=== PATIENT | female | born 1945 | race Caucasian/White ===

== ENCOUNTER 2017-12-21 21:54 | Observation (INO) ==
[2017-12-21 22:23] LABS: Bilirubin,Urine Negative (Negative); Blood,Urine Negative (Negative); Clarity,Urine Clear (Clear); Color,Urine Yellow (Yellow); Glucose,Urine (UA) Normal (Normal); Ketones,Urine Negative (Negative); Leukocyte Esterase,Urine Negative (Negative); Nitrite,Urine Negative (Negative); Protein,Urine Trace mg/dL (Neg-Trace); Urobilinogen,Urine Normal (Normal)
[2017-12-21 22:26] LABS: Bacteria,Urine None Seen per hpf (None-Few); Hyaline Casts,Urine None Seen per lpf (None-Few); Squamous Epithelial Cell,Urine Many per lpf (None-Few); WBC,Urine 0-3 per hpf (0-3)
[2017-12-21 22:29] LABS: Basophils % 0.3 %; Eosinophils # 0.2 K/mcL (0.0-0.6); Eosinophils % 1.6 %; Hematocrit 46.9 % (35.3-44.9); Hemoglobin 14.9 g/dL (11.5-15.4); Immature Granulocytes % 0.6 % (0-4); Lymphocytes # 1.9 K/mcL (0.6-4.6); Lymphocytes % 17.7 %; Mean Corpuscular HGB Conc 31.8 g/dL (31.6-35.5); Mean Corpuscular Hemoglobin 28.4 pg (28.0-33.3); Mean Corpuscular Volume 89.3 fL (83.0-100.0); Mean Platelet Volume 10.5 fL (9.4-12.4); Monocytes # 0.7 K/mcL (0.0-1.3); Monocytes % 6.5 %; Neutrophils # 7.7 K/mcL (1.6-8.9); Platelet Count 295 K/mcL (140-400); Red Blood Count 5.25 M/mcL (3.82-4.97); Red Cell Distribution Width 15.4 % (11.5-14.5); Segmented Neutrophils % 73.3 %
[2017-12-21] MEDS ORDERED: *HR* FentaNYL (PF) 100 MCG/2 ML VIAL IVP ONE (22:30)
[2017-12-21] MEDS ORDERED: Ondansetron 4 MG/2 ML VIAL IVP ONE (22:30)
--- NOTE | 2017-12-21 22:31 | Emergency Department Note ---
Disposition Clinical Impression: Bowel obstruction Qualifiers: Intestinal obstruction type: unspecified Intestinal obstruction extent: complete Qualified Code(s): K56.601 - Complete intestinal obstruction, unspecified as to cause Disposition: Admitted As Inpatient Condition: Fair Referrals: Sawyer Ramos MD [Primary Care Provider] - Forms: ED Satisfaction Letter, Work/School Release Time of Disposition: 00:27 Abdominal Pain HPI - General Chief Complaint: ED Abdominal Pain Stated Complaint: abdominal pain Time Seen by Provider: 12/21/17 21:59 Source: patient Mode of arrival: ambulatory Limitations: no limitations Nursing Notes Reviewed: Yes Vital Signs Reviewed: Yes - History of Present Illness HPI Narrative: 72-year-old female history of hypertension diabetes presents an emergency department with abdominal pain. Describes the pain as a twisting cramping pain mostly in the mid-and right upper quadrant. Reports of some nausea and burping. No vomiting. It came on quite suddenly after her dinner which composed of a hamburger with [place] cheese and onions. Pain comes and goes. Currently pain free. The pain improves sitting up forward and worse when she lays back. No prior history of this before. She has had multiple abdominal surgeries including cholecystectomy in total hysterectomy as well as gastric bypass and hernia repair. Denies any urinary symptoms. She had a bowel movement today. She is also complains of some back discomfort in the bilateral flank region. Believes she has kidney stones without prior history. States her last normal bowel movement was 2 days ago. Denies any fever cough. Denies any chest pain or shortness of breath. Denies any G.I. bleed symptoms. Pain Scale: 8 - Related Data Home Medications Medication Instructions Recorded Confirmed Escitalopram [Lexapro] 20 mg PO HS 11/17/15 09/09/17 Levothyroxine [Synthroid] 50 mcg PO HS 11/17/15 09/09/17 Lisinopril [Zestril] 40 mg PO HS 11/17/15 09/09/17 Metoprolol XL (24 HR) Succ [Toprol 25 mg PO HS 11/17/15 09/09/17 Xl] Pravastatin Sodium [Pravachol] 40 mg PO HS 11/17/15 09/09/17 Fluticasone Propionate Nasal 50 mcg NS DAILY 03/27/16 09/09/17 [Flonase] Amlodipine Besylate 5 mg PO DAILY 06/26/17 09/09/17 Aspirin [Lo-Dose Aspirin EC] 81 mg PO DAILY 09/09/17 09/09/17 Metformin HCl [Glucophage Xr] 750 mg PO DAILY 09/09/17 09/09/17 Previous Rx's Medication Instructions Recorded Handicap Placard 1 each .ROUTE AD #1 each 05/08/16 Docusate Sodium [Colace] 100 mg PO BID PRN #60 capsule 03/26/17 Letrozole [Femara] 2.5 mg PO DAILY #90 tablet 03/26/17 Nystatin OINT [Mycostatin] 15 appl TP TID #1 tube 09/09/17 cephALEXin [Keflex] 500 mg PO TID 10 Days #30 capsule 09/09/17 Allergies Allergy/AdvReac Type Severity Reaction Status Date / Time codeine Allergy See Verified 09/09/17 10:15 Comments fluticasone Allergy See Verified 09/09/17 10:15 [From Advair Diskus] Comments salmeterol Allergy See Verified 09/09/17 10:15 [From Advair Diskus] Comments All systems ED: reviewed and negative except as stated. Review of Systems: As Per HPI Constitutional: Denies: fever, chills ENT ED: Denies: congestion Cardiovascular: Denies: chest pain Respiratory: Denies: cough, dyspnea Gastrointestinal: Reports: abdominal pain, nausea. Denies: vomiting Genitourinary: Denies: urgency, dysuria, frequency, hematuria Musculoskeletal: Reports: back pain Neurological: Denies: headache Abdominal Pain PMH - Past Medical History Medical history: Reports: cancer, diabetes, GERD, hyperlipidemia, hypertension, thyroid disease, other Female Surgical History: Reports: cancer surgery, cholecystectomy, hysterectomy , orthopedic, other MERCHANDISE DIRECTOR history: Reports: no MERCHANDISE DIRECTOR history Psychiatric history: Reports: depression - Social History Smoking status: Never smoker Alcohol use: Reports: none Drug use: Reports: none Physical Exam - General Limitations: no limitations General appearance: alert, in no apparent distress, obese - Head Head exam: atraumatic, normocephalic, normal inspection - Eye Eye exam: Present: normal appearance, PERRL, EOMI. Absent: scleral icterus - ENT ENT exam: normal exam, normal oropharynx, mucous membranes moist - Neck Neck exam: Present: normal inspection, full ROM, trachea midline - Chest Chest inspection: Present: normal inspection, symmetric chest wall rise - Respiratory Respiratory exam: Present: normal lung sounds bilaterally - Cardiovascular Cardiovascular exam: Present: regular rate, normal rhythm, normal heart sounds - Abdominal Exam Abdominal exam: Present: soft, tenderness, distention, normal bowel sounds, scar (Well healing midline scar from prior surgeries). Absent: guarding, rebound, rigidity, pulsatile mass, hernia Abdominal tenderness: Present: RUQ, epigastrium, diffuse - Extremities Exam Extremities exam: Present: normal inspection, full ROM. Absent: tenderness, pedal edema - Back Exam Back exam: Present: normal inspection, full ROM, paraspinal tenderness (Mid to lower back). Absent: tenderness, CVA tenderness (R), CVA tenderness (L) - Neurological Exam Neurological exam: Present: alert, oriented X3 - Psychiatric Psychiatric exam: Present: normal affect, normal mood Course Course Narrative: Patient presents with sudden onset abdominal pain after a meal. She reports nausea and a lot of burping. She does report a bowel movement today. She otherwise appears uncomfortable. She is sitting forward as this is a position of ease. Abdomen is distended with good bowel sounds. Given her excessive history of abdominal surgeries high suspicion for bowel direction. Labs and images ordered. Medications for symptoms. - Reevaluation(s) Reevaluation #1: Patient reports improvement of pain with fentanyl as well sitting forward. Review for labs are otherwise unremarkable. Denies review any ischemic changes. CT scan of the abdomen and pelvis is pending. On repeat abdominal examination she continues to be quite distended with diffuse tenderness. Reevaluation #2: [facility] called regarding the patient's CT exam report. Concerning for mechanical obstruction with adhesions to the ventral hernia repair. Surgery will be consulted. Time: 00:18 - Consultations Consultation #1: Spoke to the on-call surgeon Dr. Holland, agrees with the placement of NG tube. Patient is known to Dr. Paris and requests to stay for admission. Will consult on the floor and evaluate with medicine admission. No further orders at this time. Time: 00:24 Consultation #2: Spoke with on-call hospitalist Dr. Cuevas, ok to admit for mechanical obstruction. Patient is known to the surgical service here at [facility]. She reports a hernia repair was performed several years ago between 5 to 10 years up in [place]. No further orders at this time. Pain is well-controlled at this time after the morphine medication. At this time attempting to place NG tube in the right manner she reports a narrow airway on the left. Time: 00:50 Vital Signs Temperature 98.3 F 12/21/17 21:57 Pulse Rate 82 12/21/17 21:57 Respiratory Rate 20 12/21/17 21:57 Blood Pressure 168/87 12/21/17 21:57 O2 Sat by Pulse Oximetry 98 12/21/17 21:57 Temperature 98.3 F 12/21/17 22:03 Pulse Rate 80 12/21/17 23:46 Respiratory Rate 16 12/21/17 23:46 Blood Pressure 155/83 12/21/17 23:46 O2 Sat by Pulse Oximetry 96 12/21/17 23:46 Oxygen Delivery Oxygen Delivery Room Air Abdominal Pain - MDM Narrative Medical decision making narrative: Patient was discussed with my attending physician who agrees with ED management and final disposition. They independently evaluated the patient. Please refer to their attestation to this encounter for additional information. This note was generated by [employer] voice recognition software and as a result grammatical or spelling errors may occur using this program. - Medical Records Medical records reviewed: Yes I reviewed the patient's medical records. - Lab Data Lab results reviewed: Yes I reviewed the patient's lab results. Result diagrams: 12/21/17 22:15 12/21/17 22:15 Lab Results 12/21/17 12/21/17 12/21/17 Range/Units 22:09 22:15 22:15 WBC 10.5 (4.3-11.1) K/mcL RBC 5.25 H (3.82-4.97) M/mcL Hgb 14.9 (11.5-15.4) g/dL Hct 46.9 H (35.3-44.9) % MCV 89.3 (83.0-100.0) fL MCH 28.4 (28.0-33.3) pg MCHC 31.8 (31.6-35.5) g/dL RDW 15.4 H (11.5-14.5) % Plt Count 295 (140-400) K/mcL MPV 10.5 (9.4-12.4) fL Immature Gran % 0.6 (0-4) % Seg Neutrophils % 73.3 % Lymphocytes % 17.7 % Monocytes % 6.5 % Eosinophils % 1.6 % Basophils % 0.3 % Neutrophils # 7.7 (1.6-8.9) K/mcL Lymphocytes # 1.9 (0.6-4.6) K/mcL Monocytes # 0.7 (0.0-1.3) K/mcL Eosinophils # 0.2 (0.0-0.6) K/mcL Basophils # 0.0 (0.0-0.2) K/mcL Sodium 138 (136-145) mEq/L Potassium 4.1 (3.5-5.1) mEq/L Chloride 99 (98-107) mEq/L Carbon Dioxide 30 H (23-29) mEq/L BUN 13 (8-23) mg/dL Creatinine 0.76 (0.60-1.20) mg/dL Est GFR ( Amer) > 60 (> 60) Est GFR (Non-Af Amer) > 60 (> 60) BUN/Creatinine Ratio 17 (6-26) Glucose 174 H (70-105) mg/dL Calculated Osmolality 290 (280-300) Lactic Acid (0.5-2.2) mmol/L Calcium 9.8 (8.6-10.3) mg/dL Total Bilirubin 0.4 (0.3-1.0) mg/dL Direct Bilirubin 0.0 (0.0-0.2) mg/dL Indirect Bilirubin 0.4 (0.0-1.2) mg/dL AST 16 (13-39) Units/L ALT 24 (7-52) Units/L Alkaline Phosphatase 99 (34-104) Units/L Troponin I (< 0.04) ng/mL Serum Total Protein 6.8 (6.4-8.9) g/dL Albumin 3.9 (3.5-5.7) g/dL Globulin 2.9 (2.4-3.5) g/dL Albumin/Globulin Ratio 1.3 (1.1-2.2) Lipase 13 (11-82) Units/L Urine Color Yellow (Yellow) Urine Clarity Clear (Clear) Urine pH 8.0 (5.0-8.0) pH Units Ur Specific [place] 1.020 (1.010-1.025) Urine Protein Trace (Neg-Trace) mg/dL Urine Glucose (UA) Normal (Normal) mg/dL Urine Ketones Negative (Negative) mg/dL Urine Blood Negative (Negative) Urine Nitrite Negative (Negative) Urine Bilirubin Negative (Negative) Urine Urobilinogen Normal (Normal) mg/dL Ur Leukocyte Esterase Negative (Negative) Urine Microscopic RBC 5-15 H (0-3) per hpf Urine Microscopic WBC 0-3 (0-3) per hpf Ur Squamous Epith Cells Many H (None-Few) per lpf Urine Bacteria None Seen (None-Few) per hpf Hyaline Casts None Seen (None-Few) per lpf Ur Culture Indicated? NO (NO) 12/21/17 12/21/17 Range/Units 23:05 23:05 WBC (4.3-11.1) K/mcL RBC (3.82-4.97) M/mcL Hgb (11.5-15.4) g/dL Hct (35.3-44.9) % MCV (83.0-100.0) fL MCH (28.0-33.3) pg MCHC (31.6-35.5) g/dL RDW (11.5-14.5) % Plt Count (140-400) K/mcL MPV (9.4-12.4) fL Immature Gran % (0-4) % Seg Neutrophils % % Lymphocytes % % Monocytes % % Eosinophils % % Basophils % % Neutrophils # (1.6-8.9) K/mcL Lymphocytes # (0.6-4.6) K/mcL Monocytes # (0.0-1.3) K/mcL Eosinophils # (0.0-0.6) K/mcL Basophils # (0.0-0.2) K/mcL Sodium (136-145) mEq/L Potassium (3.5-5.1) mEq/L Chloride (98-107) mEq/L Carbon Dioxide (23-29) mEq/L BUN (8-23) mg/dL Creatinine (0.60-1.20) mg/dL Est GFR ( Amer) (> 60) Est GFR (Non-Af Amer) (> 60) BUN/Creatinine Ratio (6-26) Glucose (70-105) mg/dL Calculated Osmolality (280-300) Lactic Acid 1.8 (0.5-2.2) mmol/L Calcium (8.6-10.3) mg/dL Total Bilirubin (0.3-1.0) mg/dL Direct Bilirubin (0.0-0.2) mg/dL Indirect Bilirubin (0.0-1.2) mg/dL AST (13-39) Units/L ALT (7-52) Units/L Alkaline Phosphatase (34-104) Units/L Troponin I < 0.03 (< 0.04) ng/mL Serum Total Protein (6.4-8.9) g/dL Albumin (3.5-5.7) g/dL Globulin (2.4-3.5) g/dL Albumin/Globulin Ratio (1.1-2.2) Lipase (11-82) Units/L Urine Color (Yellow) Urine Clarity (Clear) Urine pH (5.0-8.0) pH Units Ur Specific [place] (1.010-1.025) Urine Protein (Neg-Trace) mg/dL Urine Glucose (UA) (Normal) mg/dL Urine Ketones (Negative) mg/dL Urine Blood (Negative) Urine Nitrite (Negative) Urine Bilirubin (Negative) Urine Urobilinogen (Normal) mg/dL Ur Leukocyte Esterase (Negative) Urine Microscopic RBC (0-3) per hpf Urine Microscopic WBC (0-3) per hpf Ur Squamous Epith Cells (None-Few) per lpf Urine Bacteria (None-Few) per hpf Hyaline Casts (None-Few) per lpf Ur Culture Indicated? (NO) - Radiology Data Radiology results reviewed: Yes I reviewed the patient's radiology results. Chest X-Ray 12/21/17 22:22 IMPRESSION: No acute process. D/ / Gerardo Prince MD / Gerardo Prince MD Interpreting Provider: Gerardo Prince MD Abdomen/Pelvis CT 12/21/17 22:30 IMPRESSION: Mechanical small bowel obstruction with transition point along the mid to distal jejunum in the ventral abdomen adjacent to the ventral abdominal mesh (favor adhesion related). Surrounding fluid and inflammatory stranding raises concern for a high-grade obstruction. Hepatomegaly with steatosis. Critical results were called by Dr. Roberto Bernard to Gilmer Goodman on 12/22/2017 at 00:08. D/ / Roberto Bernard / Roberto Bernard Interpreting Provider: Roberto Bernard - EKG Data EKG attestation: Yes I reviewed and interpreted this EKG. EKG results narrative: EKG performed 2234 normal sinus rhythm, no ST elevations or depression, poor wave progression, intervals within normal limits. Compared to prior EKG performed 12/02/2014 shows similar consistent findings of poor R wave progression. No acute ischemic changes.
[2017-12-21 22:50] LABS: Alanine Aminotransferase 24 Units/L (7-52); Albumin 3.9 g/dL (3.5-5.7); Albumin/Globulin Ratio 1.3 (1.1-2.2); Alkaline Phosphatase 99 Units/L (34-104); Aspartate Amino Transferase 16 Units/L (13-39); BUN/Creatinine Ratio 17 (6-26); Bilirubin,Indirect 0.4 mg/dL (0.0-1.2); Bilirubin,Total 0.4 mg/dL (0.3-1.0); Blood Urea Nitrogen 13 mg/dL (8-23); Calcium 9.8 mg/dL (8.6-10.3); Carbon Dioxide 30 mEq/L (23-29); Chloride 99 mEq/L (98-107); Globulin 2.9 g/dL (2.4-3.5); Glucose 174 mg/dL (70-105); Lipase 13 Units/L (11-82); Osmolality,Calculated 290 (280-300); Potassium 4.1 mEq/L (3.5-5.1); Sodium 138 mEq/L (136-145); Total Protein 6.8 g/dL (6.4-8.9); eGFR For Non-African Americans > 60 (> 60)
[2017-12-22] MEDS ORDERED: *HR* Morphine 2 MG/ML SYRINGE IVP ONE ×2 (00:17→01:24)
[2017-12-22] MEDS ORDERED: Ondansetron 4 MG/2 ML VIAL IVP ONE (00:18)
[2017-12-22] MEDS ORDERED: 0.9 % Sodium Chloride 1,000 ML IVC ONE (00:19)
--- NOTE | 2017-12-22 00:20 | Emergency Department Note ---
Disposition Clinical Impression: Bowel obstruction Qualifiers: Intestinal obstruction type: unspecified Intestinal obstruction extent: complete Qualified Code(s): K56.601 - Complete intestinal obstruction, unspecified as to cause Disposition: Admitted As Inpatient Condition: Fair Referrals: Sawyer Ramos MD [Primary Care Provider] - Forms: ED Satisfaction Letter, Work/School Release General Adult HPI - General Chief complaint: ED Abdominal Pain Stated complaint: abdominal pain Time Seen by Provider: 12/21/17 21:59 Source: patient Mode of arrival: ambulatory Limitations: no limitations - History of Present Illness Pain Scale: 8 - Related Data Home Medications Medication Instructions Recorded Confirmed Escitalopram [Lexapro] 20 mg PO HS 11/17/15 09/09/17 Levothyroxine [Synthroid] 50 mcg PO HS 11/17/15 09/09/17 Lisinopril [Zestril] 40 mg PO HS 11/17/15 09/09/17 Metoprolol XL (24 HR) Succ [Toprol 25 mg PO HS 11/17/15 09/09/17 Xl] Pravastatin Sodium [Pravachol] 40 mg PO HS 11/17/15 09/09/17 Fluticasone Propionate Nasal 50 mcg NS DAILY 03/27/16 09/09/17 [Flonase] Amlodipine Besylate 5 mg PO DAILY 06/26/17 09/09/17 Aspirin [Lo-Dose Aspirin EC] 81 mg PO DAILY 09/09/17 09/09/17 Metformin HCl [Glucophage Xr] 750 mg PO DAILY 09/09/17 09/09/17 Previous Rx's Medication Instructions Recorded Handicap Placard 1 each .ROUTE AD #1 each 05/08/16 Docusate Sodium [Colace] 100 mg PO BID PRN #60 capsule 03/26/17 Letrozole [Femara] 2.5 mg PO DAILY #90 tablet 03/26/17 Nystatin OINT [Mycostatin] 15 appl TP TID #1 tube 09/09/17 cephALEXin [Keflex] 500 mg PO TID 10 Days #30 capsule 09/09/17 Allergies Allergy/AdvReac Type Severity Reaction Status Date / Time codeine Allergy See Verified 09/09/17 10:15 Comments fluticasone Allergy See Verified 09/09/17 10:15 [From Advair Diskus] Comments salmeterol Allergy See Verified 09/09/17 10:15 [From Kemi Rucker] Comments Constitutional: Denies: fever, chills ENT ED: Denies: congestion Cardiovascular: Denies: chest pain Respiratory: Denies: cough, dyspnea Gastrointestinal: Reports: abdominal pain, nausea. Denies: vomiting Genitourinary: Denies: urgency, dysuria, frequency, hematuria Musculoskeletal: Reports: back pain Neurological: Denies: headache Past Medical History - Past Medical History Medical history: Reports: cancer, diabetes, GERD, hyperlipidemia, hypertension, thyroid disease, other Surgical history: Reports: other Psychiatric history: Reports: depression SQL REPORT ANALYST history: Reports: no SQL REPORT ANALYST history - Social History Smoking Status: Never smoker Smokeless Tobacco Status: No Alcohol use: Reports: none Drug use: Reports: none Physical Exam - General Limitations: no limitations General appearance: alert, in no apparent distress, obese Course Vital Signs Temperature 98.3 F 12/21/17 21:57 Pulse Rate 82 12/21/17 21:57 Respiratory Rate 20 12/21/17 21:57 Blood Pressure 168/87 12/21/17 21:57 O2 Sat by Pulse Oximetry 98 12/21/17 21:57 Temperature 98.3 F 12/21/17 22:03 Pulse Rate 80 12/21/17 23:46 Respiratory Rate 16 12/21/17 23:46 Blood Pressure 155/83 12/21/17 23:46 O2 Sat by Pulse Oximetry 96 12/21/17 23:46 Oxygen Delivery Oxygen Delivery Room Air Medical Decision Making - Lab Data Result diagrams: 12/21/17 22:15 12/21/17 22:15 Lab Results 12/21/17 12/21/17 12/21/17 Range/Units 22:09 22:15 22:15 WBC 10.5 (4.3-11.1) K/mcL RBC 5.25 H (3.82-4.97) M/mcL Hgb 14.9 (11.5-15.4) g/dL Hct 46.9 H (35.3-44.9) % MCV 89.3 (83.0-100.0) fL MCH 28.4 (28.0-33.3) pg MCHC 31.8 (31.6-35.5) g/dL RDW 15.4 H (11.5-14.5) % Plt Count 295 (140-400) K/mcL MPV 10.5 (9.4-12.4) fL Immature Gran % 0.6 (0-4) % Seg Neutrophils % 73.3 % Lymphocytes % 17.7 % Monocytes % 6.5 % Eosinophils % 1.6 % Basophils % 0.3 % Neutrophils # 7.7 (1.6-8.9) K/mcL Lymphocytes # 1.9 (0.6-4.6) K/mcL Monocytes # 0.7 (0.0-1.3) K/mcL Eosinophils # 0.2 (0.0-0.6) K/mcL Basophils # 0.0 (0.0-0.2) K/mcL Sodium 138 (136-145) mEq/L Potassium 4.1 (3.5-5.1) mEq/L Chloride 99 (98-107) mEq/L Carbon Dioxide 30 H (23-29) mEq/L BUN 13 (8-23) mg/dL Creatinine 0.76 (0.60-1.20) mg/dL Est GFR ( Amer) > 60 (> 60) Est GFR (Non-Af Amer) > 60 (> 60) BUN/Creatinine Ratio 17 (6-26) Glucose 174 H (70-105) mg/dL Calculated Osmolality 290 (280-300) Lactic Acid (0.5-2.2) mmol/L Calcium 9.8 (8.6-10.3) mg/dL Total Bilirubin 0.4 (0.3-1.0) mg/dL Direct Bilirubin 0.0 (0.0-0.2) mg/dL Indirect Bilirubin 0.4 (0.0-1.2) mg/dL AST 16 (13-39) Units/L ALT 24 (7-52) Units/L Alkaline Phosphatase 99 (34-104) Units/L Troponin I (< 0.04) ng/mL Serum Total Protein 6.8 (6.4-8.9) g/dL Albumin 3.9 (3.5-5.7) g/dL Globulin 2.9 (2.4-3.5) g/dL Albumin/Globulin Ratio 1.3 (1.1-2.2) Lipase 13 (11-82) Units/L Urine Color Yellow (Yellow) Urine Clarity Clear (Clear) Urine pH 8.0 (5.0-8.0) pH Units Ur Specific Max 1.020 (1.010-1.025) Urine Protein Trace (Neg-Trace) mg/dL Urine Glucose (UA) Normal (Normal) mg/dL Urine Ketones Negative (Negative) mg/dL Urine Blood Negative (Negative) Urine Nitrite Negative (Negative) Urine Bilirubin Negative (Negative) Urine Urobilinogen Normal (Normal) mg/dL Ur Leukocyte Esterase Negative (Negative) Urine Microscopic RBC 5-15 H (0-3) per hpf Urine Microscopic WBC 0-3 (0-3) per hpf Ur Squamous Epith Cells Many H (None-Few) per lpf Urine Bacteria None Seen (None-Few) per hpf Hyaline Casts None Seen (None-Few) per lpf Ur Culture Indicated? NO (NO) 12/21/17 12/21/17 Range/Units 23:05 23:05 WBC (4.3-11.1) K/mcL RBC (3.82-4.97) M/mcL Hgb (11.5-15.4) g/dL Hct (35.3-44.9) % MCV (83.0-100.0) fL MCH (28.0-33.3) pg MCHC (31.6-35.5) g/dL RDW (11.5-14.5) % Plt Count (140-400) K/mcL MPV (9.4-12.4) fL Immature Gran % (0-4) % Seg Neutrophils % % Lymphocytes % % Monocytes % % Eosinophils % % Basophils % % Neutrophils # (1.6-8.9) K/mcL Lymphocytes # (0.6-4.6) K/mcL Monocytes # (0.0-1.3) K/mcL Eosinophils # (0.0-0.6) K/mcL Basophils # (0.0-0.2) K/mcL Sodium (136-145) mEq/L Potassium (3.5-5.1) mEq/L Chloride (98-107) mEq/L Carbon Dioxide (23-29) mEq/L BUN (8-23) mg/dL Creatinine (0.60-1.20) mg/dL Est GFR ( Amer) (> 60) Est GFR (Non-Af Amer) (> 60) BUN/Creatinine Ratio (6-26) Glucose (70-105) mg/dL Calculated Osmolality (280-300) Lactic Acid 1.8 (0.5-2.2) mmol/L Calcium (8.6-10.3) mg/dL Total Bilirubin (0.3-1.0) mg/dL Direct Bilirubin (0.0-0.2) mg/dL Indirect Bilirubin (0.0-1.2) mg/dL AST (13-39) Units/L ALT (7-52) Units/L Alkaline Phosphatase (34-104) Units/L Troponin I < 0.03 (< 0.04) ng/mL Serum Total Protein (6.4-8.9) g/dL Albumin (3.5-5.7) g/dL Globulin (2.4-3.5) g/dL Albumin/Globulin Ratio (1.1-2.2) Lipase (11-82) Units/L Urine Color (Yellow) Urine Clarity (Clear) Urine pH (5.0-8.0) pH Units Ur Specific Max (1.010-1.025) Urine Protein (Neg-Trace) mg/dL Urine Glucose (UA) (Normal) mg/dL Urine Ketones (Negative) mg/dL Urine Blood (Negative) Urine Nitrite (Negative) Urine Bilirubin (Negative) Urine Urobilinogen (Normal) mg/dL Ur Leukocyte Esterase (Negative) Urine Microscopic RBC (0-3) per hpf Urine Microscopic WBC (0-3) per hpf Ur Squamous Epith Cells (None-Few) per lpf Urine Bacteria (None-Few) per hpf Hyaline Casts (None-Few) per lpf Ur Culture Indicated? (NO) Attestation Statement - Attestation Attestation: I examined this patient and my medical decision-making was reviewed with the Resident Physician. I agree with the documented findings, disposition and treatment plan as described except to the extent set forth below. 72 year old female presents to the ED with complaints of abodminal pain and has a distended abdomen and a ventral hernia mesh. Patinet is vomitting but otherwise has stbale vitals and a negative lactic acid. Patinet has needed multiple rounds of pain medications. Patient ABCT shows a bowel obstruction that appears to be adhereing the to the mesh. WE will consult with surgery and then admit.
[2017-12-22] MEDS ORDERED: *HR* Midazolam HCl 2 MG/2 ML VIAL IVP ONE (01:33)
[2017-12-22] MEDS ORDERED: Ondansetron 4 MG/2 ML VIAL IVP PRN (02:27)
[2017-12-22] MEDS ORDERED: Naloxone 0.4 MG/ML INJ IVP PRN (02:27)
[2017-12-22] MEDS ORDERED: OXYCODONE Oral CONC 10 MG/0.5 ML ORAL.SYG SL PRN (02:27)
[2017-12-22] MEDS ORDERED: D5% in Water 1,000 ML IVC PRN (02:29)
[2017-12-22] MEDS ORDERED: Dextrose Gel 15 GM/37.5 ML TUBE PO PRN ×2 (02:29)
[2017-12-22] MEDS ORDERED: *HR* Dextrose 50 % in Water (Syg) 50 ML SYRINGE IVP PRN (02:29)
[2017-12-22] MEDS ORDERED: 0.9 % Sodium Chloride 1,000 ML IVC SCH (02:30)
--- NOTE | 2017-12-22 02:48 | Internal Med History&Physical ---
Date of Encounter: 12/22/17 Time of Encounter: 02:48 Internal Medicine - H&P: HPI Chief complaint: Abdominal pain Admitted From: Emergency Dept Plans for Post Hospital Care: Home History of present illness: Ms. Haines is a 72 year old female with past medical history of diabetes, breast cancer, reflux, hyperlipidemia, hypertension, hypothyroid, depression presents emergency department with complaint of epigastric pain. She states the pain was sudden onset approximately 7 PM this evening and has been getting progressively worse. She states the pain was brought on by eating where she had a cheeseburger. Pain does not radiate and has since resolved. She states that over the past couple weeks she has been experiencing some on and off subjective fever and chills. She also admits to changes in her bowel movements fluctuating from diarrhea and constipation. She denies any bright red blood in the bowel movements but did state she has noticed some black streaks in recent bowel movements. She states she is having nausea but no episodes of vomiting. Denies any symptoms of chest pain, shortness of breath, numbness, tingling. She is currently receiving chemotherapy for her breast cancer and has had radiation last approximately 2 years ago. She also states that she has not been taking her diabetes meds as she believes she can tell when her sugars are high. In the emergency department, vital signs significant for mildly hypertensive at 155/83, was unremarkable. Laboratory results grossly within normal limits. CT scan of the abdomen was obtained and showed "Mechanical small bowel obstruction with transition point along the mid to distal jejunum in the ventral abdomen adjacent to the ventral abdominal mesh (favor adhesion related). Surrounding fluid and inflammatory stranding raises concern for a high-grade obstruction." Of note, NG tube was attempted in the right and air in the emergency department however patient did not tolerate this and epistaxis resulted. She is currently not complaining of any nausea vomiting or abdominal pain and we will monitor for this time. General surgery was consulted in the emergency department and has agreed to see the patient tomorrow morning. Past medical history as above Past surgical history includes cholecystectomy, hysterectomy, gastric bypass surgery, incisional hernia repair, hernia repair Social history: Never smoker, denies alcohol use, denies drug use Past Med Surg Social Fam HX - Past Medical History Medical history: cancer, diabetes, GERD, hyperlipidemia, hypertension, thyroid disease, other Additional medical history: breast CA Psychiatric history: depression - Past Surgical History Surgical History: other Additional surgical history: gastric bypass, hysterectomy, - Social History Smoking Status: Never smoker Smokeless Tobacco Status: No Alcohol use: none Drug use: none - Family History Mother Living Status: Hx Family Cancer: Yes (lung ca) Father Living Status: Hx Family Cancer: Yes (prostate ca) Internal Medicine - H&P: Meds Escitalopram [Lexapro] 20 mg PO HS 11/17/15 [History] Levothyroxine [Synthroid] 50 mcg PO HS 11/17/15 [History] Lisinopril [Zestril] 40 mg PO HS 11/17/15 [History] Metoprolol XL (24 HR) Succ [Toprol Xl] 25 mg PO HS 11/17/15 [History] Pravastatin Sodium [Pravachol] 40 mg PO HS 11/17/15 [History] Fluticasone Propionate Nasal [Flonase] 50 mcg NS DAILY 03/27/16 [History] Handicap Placard 1 each .ROUTE AD #1 each 05/08/16 [Rx] Docusate Sodium [Colace] 100 mg PO BID PRN #60 capsule 03/26/17 [Rx] Letrozole [Femara] 2.5 mg PO DAILY #90 tablet 03/26/17 [Rx] Amlodipine Besylate 5 mg PO DAILY 06/26/17 [History] Aspirin [Lo-Dose Aspirin EC] 81 mg PO DAILY 09/09/17 [History] Metformin HCl [Glucophage Xr] 750 mg PO DAILY 09/09/17 [History] Nystatin OINT [Mycostatin] 15 appl TP TID #1 tube 09/09/17 [Rx] cephALEXin [Keflex] 500 mg PO TID 10 Days #30 capsule 09/09/17 [Rx] 3 Allergy/AdvReac Type Severity Reaction Status Date / Time codeine Allergy See Verified 09/09/17 10:15 Comments fluticasone Allergy See Verified 09/09/17 10:15 [From Advair Diskus] Comments salmeterol Allergy See Verified 09/09/17 10:15 [From Advair Diskus] Comments All Systems PM: A 10-system review of systems was performed and is negative for pertinent findings except as documented above in the HPI. - Constitutional Constitutional: chills, fever(s), malaise, no excessive sweating, no fatigue - Cardiovascular Cardiovascular ROS IM: edema (chronic), no chest pain, no diaphoresis, no dyspnea, no dyspnea on exertion - Respiratory Respiratory: no cough, no dyspnea, no dyspnea on exertion - Gastrointestinal Gastrointestinal: abdominal pain, bloating, change in bowel habits, constipation , diarrhea, melena, nausea, no coffee ground emesis, no dyspepsia, no early satiety, no hematemesis, no hematochezia, no loose stools, no vomiting - Musculoskeletal Musculoskeletal ROS IM: no numbness, no tingling - Neurological Neurological ROS: no numbness, no tingling - Constitutional Vitals: Temp Pulse Resp BP Pulse Ox 98.0 F 71 20 180/85 93 12/22/17 02:03 12/22/17 02:03 12/22/17 02:03 12/22/17 02:03 12/22/17 02:03 Exam: Gen.: Vitals noted. No acute distress. AAOx3 HEENT: PERRL/EOMI, oropharynx clear, Normocephalic, atraumatic, mildly dry mucous membranes Cardiac: RRR, no murmur, +S1/S2 Pulmonary: CTA bilaterally, no wheezes, rales or rhonchi, equal chest expansion Abdomen: soft, nontender, BS noted and mildly increased, no guarding, distended abdomen MSK: ROM intact, no joint swelling noted Extremities: 1+ BLE edema at baseline per patient, nontender calf, no cyanosis or clubbing Neuro: A&Ox3, moves all extremities, no focal deficits Psych: Appropriate mood and behavior Internal Med - H&P Results - Labs CBC & Chem 7: 12/22/17 03:26 12/22/17 03:26 - Assessment and plan (1) Bowel obstruction Current Visit: Yes Status: Acute Assessment and plan: - Potential high grade SBO on CT scan obtained in ED. Inflammation suggests adhesion related. - History of multiple abdominal surgeries including hernia with mesh complications, gastric bypass, shonna, hysterectomy - NG tube attempted in ED and unable to place. - Patient is currently asympomatic - General surgery consulted in ED, appreciate recommendations Plan - Pain control - Zofran PRN - General surgery consult - NPO. Will not place NG tube unless patient becomes symptomatic Qualifiers: Intestinal obstruction type: obstruction due to adhesions Intestinal obstruction extent: unspecified extent Qualified Code(s): K56.50 - Intestinal adhesions [bands], unspecified as to partial versus complete obstruction (2) Diabetes mellitus Current Visit: Yes Status: Chronic Assessment and plan: - BS of 174 on presentation - Patient admits to non compliance in medication. - A1c of 7.6% in August, will repeat - Low dose SSI, q6 accuchecks while NPO Qualifiers: Diabetes mellitus type: type 2 Diabetes mellitus long winder tender insulin use: without detention use Diabetes mellitus complication status: without complication Qualified Code(s): E11.9 - Type 2 diabetes mellitus without complications (3) HTN (hypertension) Current Visit: Yes Status: Chronic Assessment and plan: - BP mildly elevated at 155/83, possibly related to pain - Will give hydralazine PRN while patient is NPO off home meds Qualifiers: Hypertension type: essential hypertension Qualified Code(s): I10 - Essential (primary) hypertension (4) Breast cancer in female Current Visit: No Status: Chronic Assessment and plan: - Continue chemotherapy medications - DVT prophylaxis as she is high risk Qualifiers: Breast location: unspecified site of breast Estrogen receptor status: unspecified Laterality: bilateral Qualified Code(s): C50.911 - Malignant neoplasm of unspecified site of right female breast; C50.912 - Malignant neoplasm of unspecified site of left female breast (5) DVT prophylaxis Current Visit: Yes Status: Acute Assessment and plan: - Heparin 5000 units q12 hours - Time Spent With Patient Total time spent is greater than 50% in coordination of care (as documented) at patient's floor/unit and/or counseling patient:
[2017-12-22 03:45] LABS: Hematocrit 42.1 % (35.3-44.9); Mean Corpuscular HGB Conc 31.6 g/dL (31.6-35.5); Mean Corpuscular Hemoglobin 28.4 pg (28.0-33.3); Mean Corpuscular Volume 89.8 fL (83.0-100.0); Mean Platelet Volume 10.7 fL (9.4-12.4); Platelet Count 252 K/mcL (140-400); Red Blood Count 4.69 M/mcL (3.82-4.97); Red Cell Distribution Width 15.6 % (11.5-14.5)
[2017-12-22 03:46] LABS: Hemoglobin 13.3 g/dL (11.5-15.4)
[2017-12-22 04:07] LABS: BUN/Creatinine Ratio 20 (6-26); Blood Urea Nitrogen 14 mg/dL (8-23); Calcium 9.3 mg/dL (8.6-10.3); Carbon Dioxide 30 mEq/L (23-29); Chloride 102 mEq/L (98-107); Glucose 187 mg/dL (70-105); Magnesium 2.1 mg/dL (1.6-2.6); Osmolality,Calculated 293 (280-300); Potassium 4.5 mEq/L (3.5-5.1); Sodium 139 mEq/L (136-145); eGFR For Non-African Americans > 60 (> 60)
[2017-12-22] MEDS: OXYCODONE Oral CONC 10 MG/0.5 ML ORAL.SYG SL PRN ×2 (04:56→13:30)
[2017-12-22] MEDS ORDERED: *HR* Promethazine 25 MG/ML VIAL IVP ONE (05:12)
[2017-12-22] MEDS ORDERED: *HR* Heparin 5,000 UNIT/ML VIAL SQ SCH (06:00)
[2017-12-22] MEDS: Insulin LISPRO 300 UNITS/3 ML VIAL SQ SCH ×2 (08:33→11:19)
--- NOTE | 2017-12-22 09:08 | General Surgery Consult Note ---
<Yasmin Reese E - Last Filed: 12/22/17 10:06> Date of Encounter: 12/22/17 Time of Encounter: 09:07 Assessment and Plan (1) Bowel obstruction Status: Acute Remain nothing by mouth IV fluids as per primary Pain meds as per primary Supportive care Recommend transfer to [facility] due to previous Rolux-En-Y bypass site possibly being involved in high grade bowel obstruction Qualifiers: Intestinal obstruction type: obstruction due to adhesions Intestinal obstruction extent: unspecified extent Qualified Code(s): K56.50 - Intestinal adhesions [bands], unspecified as to partial versus complete obstruction History of Present Illness Consult date: 12/22/17 Requesting physician: Gilmer Goodman History of present illness: Ms. Haines is a 72 yowf who presented to the ED with epigastric pain that started after she had ate a cheeseburger for dinner. She states she felt like she had to have a bowel movement but could only urinate. Her last bowel movement was on Friday morning and she has not passed gas since. She is currently having some diffuse abdominal pain that radiates around to her lower back on the right side. She said over the lsat few weeks she had some on and off fever and chills but had not taken her temperature just felt hot. She has had some changes in her bowel movements over the last few months, occasionally having some diarrhea. She denies any bright red blood in her stools but does say they are occasionally darkly streaked. She has been slightly nauseous this morning with no vomiting. She has a history of DM, breast cancer, reflux, hyperlipidemia, HTN, hypothyroid, and depression. Currently undergoing chemotherapy for breast cancer. Abdominal surgeries include gastric bypass approximately 20 years ago, surgery to snip the bypass ring due to scar tissue formation, cystectomy, incisional hernia repair, and hysterectomy. Past Med Surg Social Fam HX - Past Medical History Medical history: cancer, diabetes, GERD, hyperlipidemia, hypertension, thyroid disease, other Additional medical history: breast CA Psychiatric history: depression - Past Surgical History Surgical History: other Additional surgical history: gastric bypass, hysterectomy, - Social History Smoking Status: Never smoker Smokeless Tobacco Status: No Alcohol use: none Drug use: none - Family History Mother Living Status: Hx Family Cancer: Yes (lung ca) Father Living Status: Hx Family Cancer: Yes (prostate ca) Medications and Allergies Escitalopram [Lexapro] 20 mg PO HS 11/17/15 [History] Levothyroxine [Synthroid] 50 mcg PO HS 11/17/15 [History] Metoprolol XL (24 HR) Succ [Toprol Xl] 25 mg PO HS 11/17/15 [History] Pravastatin Sodium [Pravachol] 40 mg PO HS 11/17/15 [History] Fluticasone Propionate Nasal [Flonase] 50 mcg NS DAILY 03/27/16 [History] Docusate Sodium [Colace] 100 mg PO BID PRN #60 capsule 03/26/17 [Rx] Letrozole [Femara] 2.5 mg PO DAILY #90 tablet 03/26/17 [Rx] Aspirin [Lo-Dose Aspirin EC] 81 mg PO DAILY 09/09/17 [History] Metformin HCl [Glucophage Xr] 750 mg PO DAILY 09/09/17 [History] Amlodipine Besylate 10 mg PO DAILY 12/22/17 [History] Losartan Potassium [Cozaar] 100 mg PO DAILY 12/22/17 [History] 3 Allergy/AdvReac Type Severity Reaction Status Date / Time codeine Allergy See Verified 09/09/17 10:15 Comments fluticasone Allergy See Verified 09/09/17 10:15 [From Advair Diskus] Comments salmeterol Allergy See Verified 09/09/17 10:15 [From Advair Diskus] Comments Review of Systems All systems PM: The remainder of the systems were reviewed and are negative - Constitutional as per HPI - Cardiovascular no chest pain, no irregular heart rhythm, no radiating jaw, neck or arm pain - Respiratory no cough, no dyspnea, no chest congestion - Gastrointestinal as per HPI General Surgery Exam Initial Vital Signs Temp Pulse Resp BP Pulse Ox 98.3 F 82 20 168/87 98 12/21/17 21:57 12/21/17 21:57 12/21/17 21:57 12/21/17 21:57 12/21/17 21:57 - General physical appearance well developed, well nourished, moderate distress - Respiratory normal expansion, normal respiratory effort, clear to auscultation - Cardiovascular Cardiovascular exam: Present: RRR, no murmurs/rubs/gallops - Abdomen Abdomen general surgery: Present: bowel sounds present, distended, tender, rebound Abdominal Tenderness: Present: diffusely - Integumentary Integumentary general surgery: Present: warm and dry, no abnormal pigmentation - Musculoskeletal Present: normal posture - Psychiatric Psychiatric general surgery: Present: oriented to person, oriented to place, oriented to time Exam Initial Vital Signs Temp Pulse Resp BP Pulse Ox 98.3 F 82 20 168/87 98 12/21/17 21:57 12/21/17 21:57 12/21/17 21:57 12/21/17 21:57 12/21/17 21:57 Results - Labs 12/22/17 03:26 12/22/17 03:26 Abnormal lab results RDW 15.6 % (11.5-14.5) H 12/22/17 03:26 Carbon Dioxide 30 mEq/L (23-29) H 12/22/17 03:26 Glucose 187 mg/dL (70-105) H 12/22/17 03:26 POC Glucose 148 mg/dL (70-99) H 12/22/17 04:49 Urine Microscopic RBC 5-15 per hpf (0-3) H 12/21/17 22:09 Ur Squamous Epith Cells Many per lpf (None-Few) H 12/21/17 22:09 Diabetes panel 12/22/17 Range/Units 03:26 Sodium 139 (136-145) mEq/L Potassium 4.5 (3.5-5.1) mEq/L Chloride 102 (98-107) mEq/L Carbon Dioxide 30 H (23-29) mEq/L BUN 14 (8-23) mg/dL Creatinine 0.69 (0.60-1.20) mg/dL Glucose 187 H (70-105) mg/dL Calcium 9.3 (8.6-10.3) mg/dL Calcium panel 12/22/17 Range/Units 03:26 Calcium 9.3 (8.6-10.3) mg/dL Pituitary panel 12/22/17 Range/Units 03:26 Sodium 139 (136-145) mEq/L Potassium 4.5 (3.5-5.1) mEq/L Chloride 102 (98-107) mEq/L Carbon Dioxide 30 H (23-29) mEq/L BUN 14 (8-23) mg/dL Creatinine 0.69 (0.60-1.20) mg/dL Glucose 187 H (70-105) mg/dL Calcium 9.3 (8.6-10.3) mg/dL Adrenal panel 12/22/17 Range/Units 03:26 Sodium 139 (136-145) mEq/L Potassium 4.5 (3.5-5.1) mEq/L Chloride 102 (98-107) mEq/L Carbon Dioxide 30 H (23-29) mEq/L BUN 14 (8-23) mg/dL Creatinine 0.69 (0.60-1.20) mg/dL Glucose 187 H (70-105) mg/dL Calcium 9.3 (8.6-10.3) mg/dL All other labs normal. Consult Discharge Plan - Plan Instructions: Diabetes Mellitus Type 2 in Adults (DC), Chronic Hypertension (DC ) Referrals: Sawyer Ramos MD [Primary Care Provider] - (in 1-2 weeks) <Krista Holland - Last Filed: 12/22/17 16:09> Date of Encounter: 12/22/17 Review of Systems All systems PM: The remainder of the systems were reviewed and are negative General Surgery Exam Initial Vital Signs Temp Pulse Resp BP Pulse Ox 98.3 F 82 20 168/87 98 12/21/17 21:57 12/21/17 21:57 12/21/17 21:57 12/21/17 21:57 12/21/17 21:57 Exam Initial Vital Signs Temp Pulse Resp BP Pulse Ox 98.3 F 82 20 168/87 98 12/21/17 21:57 12/21/17 21:57 12/21/17 21:57 12/21/17 21:57 12/21/17 21:57 Results - Labs 12/22/17 03:26 12/22/17 03:26 Abnormal lab results RDW 15.6 % (11.5-14.5) H 12/22/17 03:26 Carbon Dioxide 30 mEq/L (23-29) H 12/22/17 03:26 Glucose 187 mg/dL (70-105) H 12/22/17 03:26 POC Glucose 148 mg/dL (70-99) H 12/22/17 04:49 Hemoglobin A1c 7.6 % (-5.6) H 12/22/17 03:26 Urine Microscopic RBC 5-15 per hpf (0-3) H 12/21/17 22:09 Ur Squamous Epith Cells Many per lpf (None-Few) H 12/21/17 22:09 Diabetes panel 12/22/17 12/22/17 Range/Units 03:26 03:26 Sodium 139 (136-145) mEq/L Potassium 4.5 (3.5-5.1) mEq/L Chloride 102 (98-107) mEq/L Carbon Dioxide 30 H (23-29) mEq/L BUN 14 (8-23) mg/dL Creatinine 0.69 (0.60-1.20) mg/dL Glucose 187 H (70-105) mg/dL Hemoglobin A1c 7.6 H ( - 5.6) % Calcium 9.3 (8.6-10.3) mg/dL Calcium panel 12/22/17 Range/Units 03:26 Calcium 9.3 (8.6-10.3) mg/dL Pituitary panel 12/22/17 Range/Units 03:26 Sodium 139 (136-145) mEq/L Potassium 4.5 (3.5-5.1) mEq/L Chloride 102 (98-107) mEq/L Carbon Dioxide 30 H (23-29) mEq/L BUN 14 (8-23) mg/dL Creatinine 0.69 (0.60-1.20) mg/dL Glucose 187 H (70-105) mg/dL Calcium 9.3 (8.6-10.3) mg/dL Adrenal panel 12/22/17 Range/Units 03:26 Sodium 139 (136-145) mEq/L Potassium 4.5 (3.5-5.1) mEq/L Chloride 102 (98-107) mEq/L Carbon Dioxide 30 H (23-29) mEq/L BUN 14 (8-23) mg/dL Creatinine 0.69 (0.60-1.20) mg/dL Glucose 187 H (70-105) mg/dL Calcium 9.3 (8.6-10.3) mg/dL All other labs normal. - Attending Attestation The resident saw this consult in the am and patient was transfered to [facility], I did not see this patient do not bill consult
[2017-12-22 09:48] LABS: Estimated Average Glucose 171 mg/dl; Hemoglobin A1C 7.6 %
[2017-12-22 10:03] VITALS: BP 145/78
--- NOTE | 2017-12-22 11:29 | Discharge Summary ---
- NOTES TO OUTPATIENT PROVIDER Notes to Outpatient Provider: Patient with SBO involving prior Chelsie-En-Y Gastric bypass location. Patient being transferred to [facility] per surgery recommendations for higher level care. Date of Encounter: 12/22/17 Time of Encounter: 11:26 - Discharge Diagnosis (1) Bowel obstruction Priority: Primary Status: Acute Qualifiers: Intestinal obstruction type: obstruction due to adhesions Intestinal obstruction extent: unspecified extent Qualified Code(s): K56.50 - Intestinal adhesions [bands], unspecified as to partial versus complete obstruction (2) Breast cancer in female Priority: Secondary Status: Chronic Qualifiers: Breast location: unspecified site of breast Estrogen receptor status: unspecified Laterality: bilateral Qualified Code(s): C50.911 - Malignant neoplasm of unspecified site of right female breast; C50.912 - Malignant neoplasm of unspecified site of left female breast (3) Diabetes mellitus Priority: Secondary Status: Chronic Qualifiers: Diabetes mellitus type: type 2 Diabetes mellitus fdc insulin use: without fdc use Diabetes mellitus complication status: without complication Qualified Code(s): E11.9 - Type 2 diabetes mellitus without complications (4) HTN (hypertension) Priority: Secondary Status: Chronic Qualifiers: Hypertension type: essential hypertension Qualified Code(s): I10 - Essential (primary) hypertension (5) DVT prophylaxis Priority: Secondary Status: Acute Hospital course: Ms. Haines is a 72 year old female patient with history of Chelsie-en-Y gastric bypass surgery was hospitalized here with acute high-grade small bowel obstruction. CT scan of the pelvis showed high-grade obstruction at site of gastric bypass. As such surgery recommends transferring patient to tertiary care Center for higher level of care. I called [facility] and they have kindly accepted transfer for further care of this complicated patient. She will be transferred once she has a bed available. Discharge discussed with: patient, nurse, strategy execution consultant - Time Spent with Patient Total time spent providing and/or coordinating discharge services: Greater than 30 minutes (40 min) - Discharge Medications Home Medications: Escitalopram [Lexapro] 20 mg PO HS 11/17/15 [History] Levothyroxine [Synthroid] 50 mcg PO HS 11/17/15 [History] Metoprolol XL (24 HR) Succ [Toprol Xl] 25 mg PO HS 11/17/15 [History] Pravastatin Sodium [Pravachol] 40 mg PO HS 11/17/15 [History] Fluticasone Propionate Nasal [Flonase] 50 mcg NS DAILY 03/27/16 [History] Docusate Sodium [Colace] 100 mg PO BID PRN #60 capsule 03/26/17 [Rx] Letrozole [Femara] 2.5 mg PO DAILY #90 tablet 03/26/17 [Rx] Aspirin [Lo-Dose Aspirin EC] 81 mg PO DAILY 09/09/17 [History] Metformin HCl [Glucophage Xr] 750 mg PO DAILY 09/09/17 [History] Amlodipine Besylate 10 mg PO DAILY 12/22/17 [History] Losartan Potassium [Cozaar] 100 mg PO DAILY 12/22/17 [History] Allergies/Adverse Reactions: 3 Allergy/AdvReac Type Severity Reaction Status Date / Time codeine Allergy See Verified 09/09/17 10:15 Comments fluticasone Allergy See Verified 09/09/17 10:15 [From Advair Diskus] Comments salmeterol Allergy See Verified 09/09/17 10:15 [From Advair Diskus] Comments Date of admission: 12/22/17 00:58 Primary care physician: Sawyer Ramos MD Consults: 12/22/17 00:23 Consult to Surgery [CONS] Stat Consulting Provider: [facility] Reason for Consult: obstruction Time Notified: 00:23 Call Completed: Yes Discharging clinician: Paolo Nunez Anticipated date of discharge: 12/22/17 - Constitutional Vitals: Temp Pulse Resp BP Pulse Ox 97.9 F 73 16 145/78 95 12/22/17 10:00 12/22/17 10:00 12/22/17 10:00 12/22/17 10:00 12/22/17 10:00 General appearance: Present: A&O X 3, pleasant, obese, answers questions appropriately Exam: . - Respiratory Respiratory exam: Present: CTAB. Absent: accessory muscle use, rales, rhonchi, wheezes - Cardiovascular Cardiovascular exam: Present: RRR, +S1, +S2. Absent: diastolic murmur, gallop, rubs, systolic murmur - GI/Abdominal GI/Abdominal exam: Present: normal bowel sounds, soft, no peritoneal signs. Absent: distended, tenderness - Extremities Exam Extremities exam: Present: warm, radial pulses palpable and symmetrical. Absent : calf tenderness, cyanotic, pedal edema - Neurological Exam Neurological exam: Present: CN II-XII intact, oriented X3, no focal deficits. Absent: facial droop, speech deficit - Skin Skin exam: Present: dry, intact - Patient Status Disposition: Transfer Short-Term Hosp Condition: Good Functional capacity at discharge: independent ambulation Overall status at discharge: patient is back to baseline - Discharge Instructions Instructions: Diabetes Mellitus Type 2 in Adults (DC), Chronic Hypertension (DC ) Follow Up With: Sawyer Ramos MD [Primary Care Provider] - (in 1-2 weeks) - Diet and Activity Activity: increase activity as tolerated Diet: other (NPO )
--- NOTE | 2017-12-22 16:21 | Electrocardiograph Report ---
[place] [id number] Test Date: 2017-12-21 Pat Name: Emani Haines Department: Room: 3A23 Gender: F Patient Care Provider: : [id number] Requested By: Nell Crenshaw Order Number: [id number] Reading MD: Flor Griffiths Measurements Intervals [place] Rate: 78 P: -22 IN: 157 QRS: -35 QRSD: 97 T: 6 QT: 384 QTc: 438 Interpretive Statements Sinus rhythm Left axis deviation Low voltage, precordial leads Probable anteroseptal infarct, old Electronically Signed On 12-22-2017 16:19:51 EDT by Flor Griffiths
[2017-12-22] MEDS ORDERED: Insulin LISPRO 300 UNITS/3 ML VIAL SQ SCH (21:00)
== END 2017-12-22 13:44 | disposition short-term general hospital (02) ==
LOC: 3ANU 21:54 → EMEROOARM 21:54 → SUATTDRO 12-22 00:58 → 3ANU 12-22 01:46
PROVIDERS: ADMIT Family Medicine; ATTEND Internal Medicine

== ENCOUNTER 2020-04-02 11:17 | Observation (INO) ==
[2020-04-02] MEDS ORDERED: Albuterol 2.5 MG/3 ML NEBULIZER IH ONE (11:56)
[2020-04-02] MEDS ORDERED: Dexamethasone 4 MG/ML VIAL IVP ONE (11:56)
[2020-04-02 12:07] LABS: Basophils % 0.4 %; Eosinophils # 0.2 K/mcL (0.0-0.6); Eosinophils % 2.2 %; Hemoglobin 13.8 g/dL (11.5-15.4); Immature Granulocytes % 0.4 % (0-4); Lymphocytes # 2.2 K/mcL (0.6-4.6); Lymphocytes % 26.2 %; Mean Corpuscular HGB Conc 32.1 g/dL (31.6-35.5); Mean Corpuscular Hemoglobin 27.9 pg (28.0-33.3); Mean Platelet Volume 10.1 fL (9.4-12.4); Monocytes # 0.4 K/mcL (0.0-1.3); Monocytes % 5.4 %; Neutrophils # 5.4 K/mcL (1.6-8.9); Platelet Count 301 K/mcL (140-400); Red Blood Count 4.94 M/mcL (3.82-4.97); Red Cell Distribution Width 14.7 % (11.5-14.5); Segmented Neutrophils % 65.4 %; White Blood Count 8.2 K/mcL (4.3-11.1)
[2020-04-02] MEDS ORDERED: Aspirin 325 MG TABLET PO ONE (12:13)
[2020-04-02 12:26] LABS: BUN/Creatinine Ratio 20 (6-26); Blood Urea Nitrogen 13 mg/dL (8-23); Calcium 9.5 mg/dL (8.6-10.3); Carbon Dioxide 28 mEq/L (23-29); Chloride 100 mEq/L (98-107); Glucose 145 mg/dL (70-105); Osmolality,Calculated 289 (280-300); Potassium 3.9 mEq/L (3.5-5.1); Sodium 138 mEq/L (136-145); eGFR For African Americans > 60 (> 60); eGFR For Non-African Americans > 60 (> 60)
[2020-04-02 12:27] LABS: Troponin I < 0.03 ng/mL (< 0.04)
[2020-04-02] MEDS ORDERED: Perflutren Lipid Microsphere 1.3 ML in 0.9 % Sodium Chloride 8.7 ML IVP PRN (14:01)
[2020-04-02] MEDS ORDERED: Albuterol 2.5 MG/3 ML NEBULIZER IH PRN (14:08)
[2020-04-02] MEDS ORDERED: D5% in Water 1,000 ML IVC PRN (14:13)
[2020-04-02] MEDS ORDERED: *HR* Dextrose 50 % in Water (Vial) 50 ML VIAL IVP PRN (14:13)
[2020-04-02] MEDS ORDERED: Dextrose Gel 15 GM/37.5 ML TUBE PO PRN ×2 (14:13)
[2020-04-02] MEDS ORDERED: Acetaminophen 325 MG TABLET PO PRN (14:14)
[2020-04-02] MEDS ORDERED: Naloxone 0.4 MG/ML INJ IVP PRN (14:14)
[2020-04-02] MEDS ORDERED: Azithromycin 500 MG in 0.9 % Sodium Chloride 250 ML IVPB SCH (15:00)
[2020-04-02 17:05] LABS: ABG Base Excess 3 mEq/L (-2 to 3); ABG HCO3 28 mEq/L (21-27); ABG Oxygen Saturation 93 % (95-98); ABG PCO2 44 mmHg (35-45); ABG PH 7.41 pH Units (7.32-7.45); ABG PO2 67 mmHg (85-104); ABG TCO2 29 mEq/L (20-26)
[2020-04-02] MEDS: Insulin LISPRO 300 UNITS/3 ML VIAL SQ SCH (17:17)
[2020-04-02] MEDS: MethylPREDNISolone 40 MG/ML VIAL IVP SCH (20:01)
[2020-04-02] MEDS: Famotidine 20 MG TABLET PO SCH (20:01)
[2020-04-02] MEDS ORDERED: Letrozole 2.5 MG TABLET PO SCH (21:00)
[2020-04-02] MEDS ORDERED: Insulin LISPRO 300 UNITS/3 ML VIAL SQ SCH (21:00)
[2020-04-02] MEDS: *HR* Heparin 5,000 UNIT/ML VIAL SQ SCH (21:26)
[2020-04-02] MEDS: Budesonide/Formoterol 80/4.5 1 PUFF INH IH SCH (21:48)
[2020-04-03 00:48] LABS: Hematocrit 42.7 % (35.3-44.9); Hemoglobin 13.7 g/dL (11.5-15.4); Mean Corpuscular HGB Conc 32.1 g/dL (31.6-35.5); Mean Corpuscular Volume 87.3 fL (83.0-100.0); Mean Platelet Volume 10.4 fL (9.4-12.4); Platelet Count 292 K/mcL (140-400); Red Blood Count 4.89 M/mcL (3.82-4.97); Red Cell Distribution Width 14.6 % (11.5-14.5); White Blood Count 9.5 K/mcL (4.3-11.1)
[2020-04-03 01:11] LABS: Troponin I < 0.03 ng/mL (< 0.04)
[2020-04-03 01:12] LABS: BUN/Creatinine Ratio 31 (6-26); Blood Urea Nitrogen 19 mg/dL (8-23); Calcium 9.9 mg/dL (8.6-10.3); Carbon Dioxide 27 mEq/L (23-29); Chloride 101 mEq/L (98-107); Chol/HDL Ratio 4.1 (0-4.9); Cholesterol 245 mg/dL (< 200); Glucose 229 mg/dL (70-105); HDL Cholesterol 60 mg/dL (40-59); LDL Cholesterol,Calculated 167 mg/dL (< 100); Osmolality,Calculated 294 (280-300); Phosphorous 3.4 mg/dL (2.7-4.5); Potassium 4.2 mEq/L (3.5-5.1); Sodium 137 mEq/L (136-145); Triglycerides 92 mg/dL (< 150); eGFR For African Americans > 60 (> 60); eGFR For Non-African Americans > 60 (> 60)
[2020-04-03 01:22] LABS: Thyroid Stimulating Hormone 0.895 mcIU/mL (0.340-5.600)
[2020-04-03] MEDS: MethylPREDNISolone 40 MG/ML VIAL IVP SCH (05:26)
[2020-04-03] MEDS: *HR* Heparin 5,000 UNIT/ML VIAL SQ SCH (05:32)
[2020-04-03] MEDS: Insulin LISPRO 300 UNITS/3 ML VIAL SQ SCH ×2 (08:19→12:11)
[2020-04-03 08:23] LABS: Estimated Average Glucose 171 mg/dl
[2020-04-03] MEDS: Famotidine 20 MG TABLET PO SCH (08:23)
[2020-04-03] MEDS ORDERED: Cholecalciferol (D-3) 1,000 UNIT (25MCG) TABLET PO SCH (09:00)
[2020-04-03] MEDS ORDERED: Aspirin Enteric Coated 81 MG Tablet PO SCH (09:00)
[2020-04-03] MEDS ORDERED: Valsartan 160 MG TABLET PO SCH (09:00)
[2020-04-03] MEDS ORDERED: hydroCHLOROthiazide 25 MG TABLET PO SCH (09:00)
[2020-04-03] MEDS: Budesonide/Formoterol 80/4.5 1 PUFF INH IH SCH (10:55)
[2020-04-03 11:46] VITALS: BP 159/73
== END 2020-04-03 12:50 | disposition home or self-care (01) ==
LOC: EMEROOARM 11:17 → 3BNU 11:17 → SUATTDRO 13:43 → 3BNU 14:10
PROVIDERS: ADMIT Student in an Organized Health Care Education/Training Program; ATTEND Internal Medicine